=== PATIENT | male | born 1950 | race Caucasian/White ===

== ENCOUNTER → 2020-07-23 | Day surgery (SDC) | payer MEDICARE, OTHER ==
[~2020-07-23] VITALS: Ht 165.1 cm; Wt 87.5 kg
[~2020-07-23] MED LIST: ACETAMINOPHEN500 M1 PO; ALLOPURINOL 30300 MG PO; B complex PO; FERROUS SULFAT325 MG PO; LISINOPRIL 20MG20 MG PO; METOPROLOL SUCC25 MG PO; MOTRIN600 MG PO; PROTONIX 40MG T40 MG PO; SIMVASTATIN40 MG PO
[2020-07-23 09:40] LABS: BUN/CREAT RATIO (CALC) 17.4 RATIO; CREATININE 0.86 mg/dL (0.67-1.17); POTASSIUM 3.8 mmol/L (3.5-5.1)
== END | disposition home or self-care (01) ==
LOC: FAS 08:23
PROVIDERS: Anesthesiology
DX: Z45.2 Encounter for adjustment and management of vascular access device (principal); D64.9 Anemia, unspecified; K21.9 Gastro-esophageal reflux disease without esophagitis; I10 Essential (primary) hypertension; E78.00 Pure hypercholesterolemia, unspecified; E78.5 Hyperlipidemia, unspecified; Z85.71 Personal history of Hodgkin lymphoma; Z88.7 Allergy status to serum and vaccine
CPT/HCPCS: 36415; 80048; 93005; J0690; J2250; J2704; J7120